=== PATIENT | female | born 1965 | race Caucasian/White ===

== ENCOUNTER → 2021-12-22 08:47 | Outpatient (CLI) | payer OTHER, SELFPAY ==
--- NOTE | ~2021-12-22 | US_ITS ---
EXAMINATION: US right upper quadrant DATE: 12/22/2021 09:15 INDICATION: Possible liver lesion on outside hospital CT TECHNIQUE: Multiple grayscale and Doppler ultrasound images of the abdomen were obtained. COMPARISON: None available FINDINGS: The head, body, and tail of the pancreas are normal. The liver is normal with normal echoge nicity and echotexture. No surface nodularity. Normal hepatopetal flow in the main portal vein. The g allbladder is normal with no abnormal wall thickening, pericholecystic fluid or stones. The normal co mmon bile duct measures 4 mm. There was no sonographic Arteaga sign. IMPRESSION: 1. No definite liver lesion identified. Reviewed, dictated and finalized at location A.
== END ==
PROVIDERS: PCP Internal Medicine; Visit Provider Internal Medicine
DX: K76.9 Liver disease, unspecified (principal)
CPT/HCPCS: 76705

== ENCOUNTER → 2022-03-30 13:15 | Outpatient (CLI) | payer OTHER, SELFPAY ==
--- NOTE | ~2022-03-30 | US_ITS ---
EXAMINATION: US pelvic complete w TV DATE: 03/30/2022 13:53 INDICATION: Left lower quadrant pain, history of hysterectomy TECHNIQUE: Multiple transabdominal and endovaginal sonographic images of the pelvis were obtained. COMPARISON: None. FINDINGS: The uterus is surgically absent. The ovaries are not visualized however no adnexal abnormal ity is seen. There is no free fluid in the pelvis. IMPRESSION: 1. No sonographic correlate for the patient's symptoms. Reviewed, dictated and finalized at location A.
== END ==
PROVIDERS: PCP Internal Medicine; Visit Provider Obstetrics & Gynecology
DX: R10.32 Left lower quadrant pain (principal)
CPT/HCPCS: 76830; 76856

== ENCOUNTER → 2022-04-10 15:17 | Outpatient (CLI) | payer OTHER, SELFPAY ==
--- NOTE | ~2022-04-10 | CT_ITS ---
EXAMINATION: CT abdomen pelvis w con DATE: 04/10/2022 15:47 INDICATION: Left lower quadrant pain. Occasional right lower quadrant pain. TECHNIQUE: Computed tomography (CT) of the abdomen and pelvis was performed with 100 cc Omnipaque 350 intravenous contrast. The dose-length product was 559.27 mGy-cm. Automated exposure control and iter ative reconstruction technique were employed. COMPARISON: No prior studies for comparison. FINDINGS: Lung bases are unremarkable. Heart size normal. No significant pleural or pericardial effus ion. There are multiple low-density lesions in the right hepatic lobe, largest measuring 2.4 x 1.7 cm with peripheral puddling of contrast, compatible with hemangioma in the absence of known malignancy. The spleen, pancreas, adrenal glands and left kidney are unremarkable. There are small subcentimeter hypodensities of the right kidney, too small to characterize. Normal appendix. The spleen, pancreas, adrenal glands are unremarkable. There are small subcentimeter hypodensities of the kidneys, most li aarti benign cysts. Normal appendix. No evidence for diverticulitis. No abnormal pelvic masses or flui d collections. No acute osseous abnormality. No lymphadenopathy. No free air or free fluid. No acute osseous abnormality. IMPRESSION: 1. No acute abdominal abnormality. 2: Multiple liver lesions, largest measuring up to 2.4 cm with peripheral pooling of contrast, most c ompatible with hemangioma in the absence of known malignancy. The other lesions are too small to palak acterize, although also likely benign. Reviewed, dictated and finalized at location A. IMPRESSION: 1. No acute abdominal abnormality. 2: Multiple liver lesions, largest measuring up to 2.4 cm with peripheral pooli ng of contrast, most compatible with hemangioma in the absence of known maligna ncy. The other lesions are too small to characterize, although also likely mel gn.
== END ==
PROVIDERS: PCP Internal Medicine; Visit Provider Internal Medicine
DX: R10.32 Left lower quadrant pain (principal); K76.9 Liver disease, unspecified
CPT/HCPCS: 74177; Q9967